=== PATIENT | female | born 1995 | race Caucasian/White ===

== ENCOUNTER 2016-08-25 16:21 | Inpatient (IN) | payer OTHER ==
[~2016-08-25] VITALS: Ht 157.5 cm; Wt 84.9 kg
[~2016-08-25 16:21] MED LIST: ACET325T33 PO; PREN1TAB49 PO
[2016-08-25 16:31] VITALS: Ht 157.5 cm; Wt 84.9 kg
[2016-08-25 16:33] VITALS: BP 123/64; PULSE 96; RESP 18
--- NOTE | 2016-08-25 16:55 | RADRPT ---
PROCEDURE: US biophysical profile. CLINICAL INDICATION: Decreased motion. TECHNIQUE: Multiple sonographic images of the uterus were obtained. The images were revi ewed on a PACS workstation. COMPARISON: No prior studies are available for comparison. FINDINGS: There is a single live intrauterine gestation. heart rate is 139 beats per minute. The position is cephalic. The placenta is posterior grade II with no abruption or previa. The JOHNY is 12.9 cm. (Normal = 5-20 cm.) Breathing Movement: 2 Gross Body Movement: 2 Tone: 2 Qualitative Amniotic Fluid Volume: 2 TOTAL: 8 IMPRESSION: 1. The biophysical score is 8/8. RPTAT: QQ .Gabo Nick MD, MD Date Time Electronically viewed and signed by .Gabo Nick MD, on 08/25/2016 16:54 .R/
--- NOTE | 2016-08-25 17:21 | RADRPT ---
PROCEDURE: Real Time Sonogram. August 25, 2016 04:46 p.m. CLINICAL INDICATION: 20-year-old female with uterine contractions. TECHNIQUE: This procedure was performed on a high-resolution ultrasound real time Unit using a end ovaginal probe. COMPARISON: None FINDINGS: Uterine measurements were not obtained. Presentation: Cephalic. Cervical Length: Not obtained.Placental Location: Posterior grade 2 placentaPlacental Previa: Inde terminate from this study. Body limb and cardiac motion: Yes.Heart rate: Cardiac activity was notated by the technologist. Fe romel heart rate is not recorded. Amniotic fluid volume:JOHNY is not recorded. Measured data: BPD:9.2 cm37 weeks 2 days plus or minus 3 weeks 1 day. HC:33.2 sh48-nhue 6 days plus or minus 2 weeks 5 days. AC:34.6 cm38 weeks 3 days plus or minus 3 weeks 0 days. FC:7.1 cm36 weeks 2 days plus or minus 3 weeks 0 days. AUA:37 weeks 3 days plus or minus 2 weeks 4 days. MENDEZ (AUA):September 12, 2016. Serial scan estimated menstrual age: Not calculated. weight: 3294 g plus or minus 494 g. Endovaginal imaging utilized: Yes. Additional findings: No. IMPRESSION: See above RPTAT:AAJJ Physician Elie Date Time Electronically viewed and signed by Physician Elie on 08/25/2016 17:21 DEDRICK/
[2016-08-25] MEDS ORDERED: CARBOPROST 250 MCG INJ IM PRN (18:00)
[2016-08-25] MEDS ORDERED: OXYTOCIN 30 UNITS/LR 500 ML IV PRN (18:00)
[2016-08-25] MEDS ORDERED: IBUPROFEN 600 MG TAB PO PRN (18:00)
[2016-08-25] MEDS ORDERED: METHYLERGONOVINE 0.2 MG INJ IM PRN (18:00)
[2016-08-25] MEDS ORDERED: OXYTOCIN 30 UNITS/LR 500 ML IV SCH ×2 (18:00)
[2016-08-25] MEDS ORDERED: LACTATED RINGER'S 1,000 ML IV PRN (18:00)
[2016-08-25] MEDS ORDERED: LIDOCAINE 1% (MPF) 30 ML INJ INJ PRN (18:00)
[2016-08-25] MEDS ORDERED: BUTORPHANOL 2 MG INJ IV PRN (18:00)
[2016-08-25] MEDS ORDERED: MISOPROSTOL 200 MCG TAB PR PRN (18:00)
--- NOTE | 2016-08-25 18:20 | TRIAGE ---
OB Triage Datetime Report Generated by CPN: 08/25/2016 18:19 Datetime: 08/25/2016 18:15 Labor Evaluation Frequency: 1-3 Monitor Mode: External Duration (sec)2399: 50-90 Quality: Moderate Pattern: Normal: <= 5 Contractions in 10 Minutes Resting Tone [place]: Relaxed Heart Rate FHR Baseline Rate: 130 Monitor Mode: External US FHR Baseline Changes: No Baseline Change Variability: Moderate 6-25 bpm Accelerations: 15X15 Decelerations: None Category: Category I Pain Assessment Pain Scale: 6 Pain Presence: Intermittent Pain Type: Contraction; Pressure Pain Location: Abdomen; Back Pain Goal: 2 Pain Relief Measures: Comfort Measures Datetime: 08/25/2016 17:56 Stage of : Labor Datetime: 08/25/2016 17:49 Vaginal Exam Dilatation (cms): 3.5 Effacement (%): 60 Station: -3 Exam By: Olga C. RN Datetime: 08/25/2016 17:30 Effacement (%): 70 Station: -3 Exam By: Ene RN Datetime: 08/25/2016 17:15 Labor Evaluation Frequency: 4-7 Monitor Mode: External Duration (sec)2399: 50-100 Quality: Mild Pattern: Normal: <= 5 Contractions in 10 Minutes Resting Tone [place]: Relaxed Heart Rate FHR Baseline Rate: 130 Monitor Mode: External US FHR Baseline Changes: No Baseline Change Variability: Moderate 6-25 bpm Accelerations: 15X15 Decelerations: None Category: Category I Pain Assessment Pain Scale: 6 Pain Presence: Intermittent Pain Type: Contraction; Pressure Pain Location: Abdomen; Back Pain Goal: 2 Pain Relief Measures: Comfort Measures Datetime: 08/25/2016 16:30 Assessment Type: Triage Maternal Assessment Level of Consciousness: Fully Conscious DTR's/Clonus: DTRs 2+; No Clonus Headache: Denies Blurred Vision: No Respiratory Effort: Unlabored; Regular Rhythm; Equal Expansion Breath Sounds, Left: Clear and Equal Breath Sounds, Right: Clear and Equal Nausea/Vomiting: Denies RUQ Epigastric Pain: Denies Lower Extremities Edema: Bilateral Lower Extremities Degree: 1+ Upper Extremities Edema: None Degree: None Facial Edema: None Fall Risk Assessment History of Falling: (0) No Secondary Diagnosis: (0) No Ambulatory Aid: (0) Bedrest/Nurse Assist IV Therapy: (0) No Gait: (0) Normal/Bedrest/Immobile Mental Status: (0) Oriented to Own Ability Fall Score: 0 Fall Risk Score Definition: No Risk: No action required Datetime: 08/25/2016 16:25 Time of Arrival: 08/25/2016 16:05 EGA: 39.0 Arrived By: Wheelchair Arrived From: Emergency Dept Chief Complaint: UC, vaginal bleeding, US for BPP/JOHNY, EFW, and placenta placement, VE. Movement: Present Contractions: Regular Rupture of Membranes: Unsure Vaginal Bleeding: Normal Show Vaginal Discharge: Present Recent Sexual Intercouse: Denies Abdominal Trauma: Not Applicable Patient Complaints: Contractions; Other Time Provider Notified: 08/25/2016 16:24 Provider Notified: Noman Initial Plan: OB US for placenta placement, EFW, BPP/JOHNY Datetime: 08/25/2016 16:15 Stage of : OB Triage
[2016-08-25] MEDS: LACTATED RINGER'S 1,000 ML IV SCH ×2 (19:47→21:19)
[2016-08-25 20:05] LABS: ADD SCAN DIFF NO
[2016-08-25 20:19] LABS: BASOPHILS % 0.2 % (0.0-2.0); EOSINOPHILS # 0.1 10^3/ul (0.0-0.5); EOSINOPHILS % 0.6 % (0.0-7.0); HEMATOCRIT 33.2 % (37.0-47.0); HEMOGLOBIN 10.5 g/dl (12.0-16.0); INR 0.88; LYMPHOCYTES # 2.7 10^3/ul (0.8-2.9); LYMPHOCYTES % 20.8 % (15.0-51.0); MEAN CORPUSCULAR HEMOGLOBIN 23.9 pg (29.0-33.0); MEAN CORPUSCULAR HGB CONC 31.6 g/dl (32.0-37.0); MEAN CORPUSCULAR VOLUME 75.5 fl (82.0-101.0); MEAN PLATELET VOLUME 13.1 fl (7.4-10.4); MONOCYTE # 0.8 10^3/ul (0.3-0.9); MONOCYTES % 6.3 % (0.0-11.0); NEUTROPHIL # 9.1 10^3/ul (1.6-7.5); NEUTROPHILS % 71.5 % (39.0-77.0); PLATELET COUNT 209 10^3/UL (140-415); PROTIME 11.9 Sec (12.2-14.2); PT RATIO 0.9; RED CELL DISTRIBUTION WIDTH 15.7 % (11.5-14.5); WHITE BLOOD COUNT 12.7 10^3/ul (4.8-10.8)
[2016-08-25 20:20] LABS: PARTIAL THROMBOPLASTIN TIME 26.1 Sec (25.0-35.0)
[2016-08-25] MEDS ORDERED: FENTAnyl 2MCG/ML-ROPIV 0.2% 100 ML ONE (21:13)
[2016-08-25] MEDS ORDERED: NALOXONE (0.4 MG/ML) INJ IV PRN (21:30)
[2016-08-25] MEDS ORDERED: FENTAnyl 2MCG/ML-ROPIV 0.2% 100 ML BAG EPI SCH (21:30)
[2016-08-25] MEDS ORDERED: ONDANSETRON 4 MG INJ IV PRN (21:30)
[2016-08-25] MEDS ORDERED: DIPHENHYDRAMINE 50 MG INJ IV PRN (21:30)
--- NOTE | 2016-08-26 00:23 | HP ---
Date/Time of Note Date/Time of Note DATE: 08/26/16 TIME: 00:19 OB - History Hx of Present Chief Complaint: contractions Estimated Due Date: Sep 01, 2016 : 4 Para: 2 Spontaneous : 1 Therapeutic : 0 Care: Good Care Obstetrical Complications: None Medical Complications: None Past Family/Social History * Past Medical, Surgical, Family and Obstetric Histories reviewed from chart. GBS Status: Negative OB Admission Exam Vital Signs Vital Signs Vital Signs Date Time Temp Pulse Resp B/P Pulse Ox O2 Delivery O2 Flow Rate FiO2 08/25/16 16:33 98.2 96 18 123/64 Room Air Physical Exam HEENT: WNL Heart: Rhythm Normal Lungs: Clear Abdomen: WNL Extremities: Normal Cervical Dilatation: 4cm Effacement: 50% Station: -1 Membranes: Intact Heart Rate: 140's Accelerations: Accelerations Present Decelerations: No Decelerations Varibility: Moderate Last 72 hours Lab Results CBC & BMP 08/25/16 19:40 OB Assessment/Plan Reason for admission: active labor Plan: Expectant Management МАРИЯ FERNANDES MD Aug 26, 2016 00:23
[2016-08-26 02:00] VITALS: BP 115/63; PULSE 81; RESP 17
[2016-08-26] MEDS: LACTATED RINGER'S 1,000 ML IV* SCH ×2 (02:32→05:49)
[2016-08-26] MEDS ORDERED: OXYTOCIN 30 UNITS/LR 500 ML IV PRN (03:00)
[2016-08-26] MEDS ORDERED: METHYLERGONOVINE 0.2 MG INJ IM PRN (03:00)
[2016-08-26] MEDS ORDERED: ACETAMINOPHEN 325 MG TAB PO PRN (03:00)
[2016-08-26] MEDS ORDERED: ACETAMINOPHEN/CODEINE #3 TAB PO PRN (03:00)
[2016-08-26] MEDS ORDERED: WITCH HAZEL/GLYCERIN PAD PR PRN (03:00)
[2016-08-26] MEDS ORDERED: DIBUCAINE 1% 30 GM OINT PR PRN (03:00)
[2016-08-26] MEDS ORDERED: MISOPROSTOL 200 MCG TAB PR PRN (03:00)
[2016-08-26] MEDS ORDERED: CARBOPROST 250 MCG INJ IM PRN (03:00)
[2016-08-26 04:00] VITALS: BP 121/55; PULSE 91; RESP 18
[2016-08-26] MEDS: IBUPROFEN 600 MG TAB PO SCH ×3 (05:43→17:39)
[2016-08-26] MEDS: BENZOCAINE 20% 56 ML SPRAY TOP PRN ×2 (05:44→05:45)
[2016-08-26 08:00] VITALS: BP 103/61; PULSE 71; RESP 18
[2016-08-26] MEDS: SENNA/DOCUSATE NA (8.6MG/50MG) TAB PO SCH ×2 (09:36→21:00)
[2016-08-26 11:50] VITALS: BP 110/58; PULSE 78; RESP 18
[2016-08-26 16:15] VITALS: BP 109/73; PULSE 74; RESP 18
[2016-08-26 19:45] VITALS: BP 117/59; PULSE 97; RESP 18
[2016-08-27] MEDS: IBUPROFEN 600 MG TAB PO SCH ×4 (00:04→17:48)
[2016-08-27 03:49] VITALS: BP 111/70; PULSE 79; RESP 18
[2016-08-27 06:44] LABS: ADD SCAN DIFF NO
[2016-08-27 06:53] LABS: BASOPHILS % 0.4 % (0.0-2.0); EOSINOPHILS # 0.2 10^3/ul (0.0-0.5); EOSINOPHILS % 1.6 % (0.0-7.0); HEMATOCRIT 31.5 % (37.0-47.0); HEMOGLOBIN 9.6 g/dl (12.0-16.0); LYMPHOCYTES # 3.8 10^3/ul (0.8-2.9); LYMPHOCYTES % 34.2 % (15.0-51.0); MEAN CORPUSCULAR HEMOGLOBIN 23.5 pg (29.0-33.0); MEAN CORPUSCULAR HGB CONC 30.5 g/dl (32.0-37.0); MEAN PLATELET VOLUME 12.7 fl (7.4-10.4); MONOCYTE # 0.8 10^3/ul (0.3-0.9); MONOCYTES % 6.8 % (0.0-11.0); NEUTROPHIL # 6.2 10^3/ul (1.6-7.5); NEUTROPHILS % 56.2 % (39.0-77.0); PLATELET COUNT 186 10^3/UL (140-415); RED BLOOD COUNT 4.09 10^6/ul (4.20-5.40); RED CELL DISTRIBUTION WIDTH 15.9 % (11.5-14.5); WHITE BLOOD COUNT 11.1 10^3/ul (4.8-10.8)
[2016-08-27 08:00] VITALS: BP 119/73; PULSE 68; RESP 18
[2016-08-27] MEDS ORDERED: INFLUENZA VIRUS VACCINE 0.5 ML (DISPENSING) IM* ONE (09:00)
[2016-08-27] MEDS: SENNA/DOCUSATE NA (8.6MG/50MG) TAB PO SCH ×2 (09:32→20:55)
[2016-08-27 16:24] VITALS: BP 117/62; PULSE 75; RESP 16
--- NOTE | 2016-08-27 20:01 | DS ---
Date/Time of Note Date/Time of Note DATE: 08/27/16 TIME: 20:00 Obstetrical Discharge Record Final Diagnosis Final Diagnosis: Term delivered Vaginal Delivery Obstetrical Delivery: Spontaneous Condition on Discharge Physical Assessment Voiding: Yes Bowel Movement: Yes Breast: Soft, non-tender Fundus: Firm Calf Tenderness: Yes Patient Condition: Stable МАРИЯ FERNANDES MD Aug 27, 2016 20:01
[2016-08-27 20:30] VITALS: BP 117/58; PULSE 82; RESP 18
[2016-08-28 04:00] VITALS: BP 111/67; PULSE 77; RESP 18
[2016-08-28] MEDS: IBUPROFEN 600 MG TAB PO SCH ×3 (06:00→11:48)
[2016-08-28 08:10] VITALS: BP 115/67; PULSE 75; RESP 16
[2016-08-28] MEDS: SENNA/DOCUSATE NA (8.6MG/50MG) TAB PO SCH (09:00)
[2016-08-28] MEDS ORDERED: DIPHTH/TET/ACEL PERTUSS (ADULT) 0.5 ML VIAL IM* ONE (09:00)
--- NOTE | 2016-09-06 21:27 | LDN ---
Date/Time of Note Date/Time of Note DATE: 08/26/16 TIME: 00:24 Delivery Summary Placenta Delivered: Spontaneously Meconium: none Perineum intact?: Yes Anesthesia type: Epidural Sponge & Needle done & correct: Yes All needle counts correct: Yes Any foreign bodies felt in the: No Problems: Infant Delivery Information Sex Infant Sex: female Apgars 1 Minute: 9 5 Minute: 9 Suctioning Nose & mouth suctioned at jacobo: Yes Delee suction performed: No Umbilical Cord Umbilical cord with: 3 Vessels Cord presentations: no nuchal cord Cord Blood was obtained: Yes Mother & Baby Disposition Disposition Mom & Baby to Maternity; Good: Yes МАРИЯ FERNANDES MD Aug 26, 2016 00:36
== END 2016-08-28 12:40 | disposition home or self-care (01) | DRG 775 ==
LOC: OBT 16:21 → L-D 16:21 → OBT 18:00 → L-D 19:18 → PP1 08-26 02:15
PROVIDERS: ADMIT Obstetrics & Gynecology; ATTEND Obstetrics & Gynecology
PROC: 10E0XZZ Delivery of Products of Conception, External Approach (ICD-10-PCS; principal; 2016-08-25)
PROC: 3E0234Z Introduction of Serum, Toxoid and Vaccine into Muscle, Percutaneous Approach (ICD-10-PCS; 2016-08-25)
DX: O80 Encounter for full-term uncomplicated delivery (principal); Z23 Encounter for immunization; Z3A.39 39 weeks gestation of pregnancy; Z37.0 Single live birth
CPT/HCPCS: 62319; 76815; 76818; 85025; 85610; 85730; 86592; 86900; 86901; 87340; 90686; 90715; G0463; J2590; J3010; J7120

== ENCOUNTER 2017-04-18 09:21 | Emergency (ER) | payer OTHER ==
[~2017-04-18] VITALS: Wt 83.4 kg
--- NOTE | 2017-04-18 12:50 | RADRPT ---
PROCEDURE: US Abdomen (right upper quadrant). CLINICAL INDICATION: Right upper quadrant abdomen pain. TECHNIQUE: Multiple real-time longitudinal and transverse images of the right upper quadrant of th e abdomen were acquired utilizing a curved array transducer. Images were reviewed on a high-resoluti on PACS workstation. COMPARISON: None FINDINGS: The liver is normal in size and diffusely increased in echogenicity. There is no focal hepatic lesion. Color Doppler and pulsed Doppler sonography demonstrate normal a ntegrade flow in the portal vein. There is sludge within the gallbladder. The gallbladder is otherwise normal with no stones or wall t hickening. There is no pericholecystic fluid collection. The bile ducts are normal with the common bile duct measuring 2.6 mm in diameter. The pancreas is not visualized due to overlying bowel gas. No free fluid is present. The right kidney measures 11.4 x 6.2 x 5.0 cm. There is normal echogenicity of the right kidney. There is no perinephric fluid collection. No hydronephrosis, mass, or calculus is seen. IMPRESSION: 1. Fatty metamorphosis of the liver. 2. Sludge in the gallbladder. The III no gallstones or evidence of cholecystitis. 4. Pancreas not visualized. 5. Otherwise normal right upper quadrant abdomen ultrasound. RPTAT: QQ .Gabo Nick MD, Date Time Electronically viewed and signed by .Gabo Nick MD, on 04/18/2017 12:50 .R/
--- NOTE | 2017-04-18 12:59 | RADRPT ---
PROCEDURE: Obstetrical ultrasound CLINICAL INDICATION: Vaginal bleeding, , abdominal pain TECHNIQUE: Multiple sonographic images of the pelvis were obtained. The images were reviewed on a PACS workstation. COMPARISON: None FINDINGS: The cervix is not well visualized. There is a single viable intrauterine gestation. Cardiac activity is present with 135 beats per minute. There is a breech presentation. The placenta is anterior. There is no evidence for an abruption or placenta previa. There is a subjectively normal amount of amniotic fluid. Measurements were made in order to determine age. The results are as follows (cm): BPD =6.63 HC =24.88 AC =22.43 FL =4.53 Estimated gestational age by ultrasound of approximately 26 weeks, 3 days. The estimated date of delivery by ultrasound is 07/22/2017. EFW = 905 grams IMPRESSION: Single viable intrauterine gestation of approximately 26 weeks, 3 days . The estimated date of delivery is 07/22/2017 . Breech presentation. Anterior placenta without evidence of an abruption or placenta previa. RPTAT: EE Physician Tiana Date Time Electronically viewed and signed by Physician Tiana on 04/18/2017 12:59 /
--- NOTE | 2017-04-18 13:02 | ERD ---
ER Documentation Chief Complaint Chief Complaint ruq pain rad into back, dizziness HPI Otherwise healthy 22-year-old female presented with a chief complaint of right upper quadrant abdominal pain 1 week. Gave 6 months ago. Denies any vaginal discharge or bleeding. Denies dysuria, hematuria. No nausea, vomiting , diarrhea, constipation. No fever, chills. No aggravating or alleviating factors. Patient has no other complaints and describes no other associated manifestations. Nursing notes have been reviewed and are consistent with history given. ROS All systems reviewed and are negative except as per history of present illness. Medications Home Meds Discontinued Reported Medications Vits W-Ca,Fe,Fa(<1MG) () 1 Tab Tablet, 1 TAB PO 12/07/11 Discontinued Scripts Acetaminophen* (Tylenol*) 325 Mg Tablet, 1 TAB PO Q6 Y for PAIN AND OR ELEVATED TEMP, #20 TAB Prov:DOUGLAS CHAPPELL PA-C 11/02/15 Allergies Allergies: Coded Allergies: No Known Allergy (Unverified , 04/18/17) PMhx/Soc Medical and Surgical Hx: pt denies Medical Hx, pt denies Surgical Hx History of Surgery: No Anesthesia Reaction: No Hx Neurological Disorder: No Hx Respiratory Disorders: No Hx Cardiac Disorders: No Hx Psychiatric Problems: No Hx Miscellaneous Medical Probl: No Hx Alcohol Use: No Hx Substance Use: No Hx Tobacco Use: No Smoking Status: Never smoker Physical Exam Vitals Vital Signs Date Time Temp Pulse Resp B/P Pulse Ox O2 Delivery O2 Flow Rate FiO2 04/18/17 09:24 98.6 85 20 112/58 97 Physical Exam Const: Overweight 21-year-old female no acute distress Head: Atraumatic Eyes: Normal Conjunctiva ENT: Normal External Ears, Nose and Mouth. Neck: Full range of motion..~ No meningismus. Resp: Clear to auscultation bilaterally Cardio: Regular rate and rhythm, no murmurs Abd: Mild right upper quadrant tenderness. Gallbladder tender to palpation. Negative Kenney sign. Liver edge not palpable. Soft, non distended. Normal bowel sounds Skin: No petechiae or rashes Back: No midline or flank tenderness Ext: No cyanosis, or edema Neur: Awake and alert Psych: Normal Mood and Affect Result Diagram: 04/18/17 1145 04/18/17 1145 Results 24 hrs Laboratory Tests Test 04/18/17 11:45 White Blood Count 10.110^3/ul Red Blood Count 4.2010^6/ul Hemoglobin 10.7g/dl Hematocrit 33.9% Mean Corpuscular Volume 80.7fl Mean Corpuscular Hemoglobin 25.5pg Mean Corpuscular Hemoglobin Concent 31.6g/dl Red Cell Distribution Width 14.3% Platelet Count 99508^3/UL Mean Platelet Volume 11.7fl Neutrophils % 70.4% Lymphocytes % 22.9% Monocytes % 4.9% Eosinophils % 0.4% Basophils % 0.3% Nucleated Red Blood Cells % 0.0/100WBC Neutrophils # 7.110^3/ul Lymphocytes # 2.310^3/ul Monocytes # 0.510^3/ul Eosinophils # 0.010^3/ul Basophils # 0.010^3/ul Nucleated Red Blood Cells # 0.010^3/ul Urine Color YELLOW Urine Clarity CLEAR Urine pH 7.0 Urine Specific [place] 1.013 Urine Ketones NEGATIVEmg/dL Urine Nitrite NEGATIVEmg/dL Urine Bilirubin NEGATIVEmg/dL Urine Urobilinogen NEGATIVEmg/dL Urine Leukocyte Esterase NEGATIVELeu/ul Urine Hemoglobin NEGATIVEmg/dL Urine Glucose NEGATIVEmg/dL Urine Total Protein NEGATIVEmg/dl Sodium Level 139mmol/L Potassium Level 3.4mmol/L Chloride Level 104mmol/L Carbon Dioxide Level 25mmol/L Anion Gap 13 Blood Urea Nitrogen 6mg/dl Creatinine 0.59mg/dl Glucose Level 103mg/dl Calcium Level 10.1mg/dl Total Bilirubin 0.5mg/dl Direct Bilirubin 0.00mg/dl Indirect Bilirubin 0.5mg/dl Aspartate Amino Transf (AST/SGOT) 19IU/L Alanine Aminotransferase (ALT/SGPT) 27IU/L Alkaline Phosphatase 108IU/L Total Protein 7.1g/dl Albumin 3.8g/dl Globulin 3.30g/dl Albumin/Globulin Ratio 1.15 Lipase 196U/L Beta HCG, Quantitative 7144.9mIU/ml Procedures/MDM Otherwise healthy 21-year-old female presenting with a chief complaint of pelvic pain. Urine test was positive. Ultrasound showed 26 weeks . Patient was then transferred up to [facility]AGE [facility] for clearance. Departure Additional Instructions: This case was handed to [facility] due to date of fetus. JA HILTON PA-C Apr 18, 2017 13:02
--- NOTE | 2017-04-18 13:02 | ERD ---
ER Documentation Chief Complaint Chief Complaint ruq pain rad into back, dizziness HPI Otherwise healthy 22-year-old female presented with a chief complaint of right upper quadrant abdominal pain 1 week. Gave 6 months ago. Denies any vaginal discharge or bleeding. Denies dysuria, hematuria. No nausea, vomiting , diarrhea, constipation. No fever, chills. No aggravating or alleviating factors. Patient has no other complaints and describes no other associated manifestations. Nursing notes have been reviewed and are consistent with history given. ROS All systems reviewed and are negative except as per history of present illness. Medications Home Meds Discontinued Reported Medications Vits W-Ca,Fe,Fa(<1MG) () 1 Tab Tablet, 1 TAB PO 12/07/11 Discontinued Scripts Acetaminophen* (Tylenol*) 325 Mg Tablet, 1 TAB PO Q6 Y for PAIN AND OR ELEVATED TEMP, #20 TAB Prov:DOUGLAS CHAPPELL PA-C 11/02/15 Allergies Allergies: Coded Allergies: No Known Allergy (Unverified , 04/18/17) PMhx/Soc Medical and Surgical Hx: pt denies Medical Hx, pt denies Surgical Hx History of Surgery: No Anesthesia Reaction: No Hx Neurological Disorder: No Hx Respiratory Disorders: No Hx Cardiac Disorders: No Hx Psychiatric Problems: No Hx Miscellaneous Medical Probl: No Hx Alcohol Use: No Hx Substance Use: No Hx Tobacco Use: No Smoking Status: Never smoker Physical Exam Vitals Vital Signs Date Time Temp Pulse Resp B/P Pulse Ox O2 Delivery O2 Flow Rate FiO2 04/18/17 09:24 98.6 85 20 112/58 97 Physical Exam Const: Overweight 21-year-old female no acute distress Head: Atraumatic Eyes: Normal Conjunctiva ENT: Normal External Ears, Nose and Mouth. Neck: Full range of motion..~ No meningismus. Resp: Clear to auscultation bilaterally Cardio: Regular rate and rhythm, no murmurs Abd: Mild right upper quadrant tenderness. Gallbladder tender to palpation. Negative Kenney sign. Liver edge not palpable. Soft, non distended. Normal bowel sounds Skin: No petechiae or rashes Back: No midline or flank tenderness Ext: No cyanosis, or edema Neur: Awake and alert Psych: Normal Mood and Affect Result Diagram: 04/18/17 1145 04/18/17 1145 Results 24 hrs Laboratory Tests Test 04/18/17 11:45 White Blood Count 10.110^3/ul Red Blood Count 4.2010^6/ul Hemoglobin 10.7g/dl Hematocrit 33.9% Mean Corpuscular Volume 80.7fl Mean Corpuscular Hemoglobin 25.5pg Mean Corpuscular Hemoglobin Concent 31.6g/dl Red Cell Distribution Width 14.3% Platelet Count 32610^3/UL Mean Platelet Volume 11.7fl Neutrophils % 70.4% Lymphocytes % 22.9% Monocytes % 4.9% Eosinophils % 0.4% Basophils % 0.3% Nucleated Red Blood Cells % 0.0/100WBC Neutrophils # 7.110^3/ul Lymphocytes # 2.310^3/ul Monocytes # 0.510^3/ul Eosinophils # 0.010^3/ul Basophils # 0.010^3/ul Nucleated Red Blood Cells # 0.010^3/ul Urine Color YELLOW Urine Clarity CLEAR Urine pH 7.0 Urine Specific [place] 1.013 Urine Ketones NEGATIVEmg/dL Urine Nitrite NEGATIVEmg/dL Urine Bilirubin NEGATIVEmg/dL Urine Urobilinogen NEGATIVEmg/dL Urine Leukocyte Esterase NEGATIVELeu/ul Urine Hemoglobin NEGATIVEmg/dL Urine Glucose NEGATIVEmg/dL Urine Total Protein NEGATIVEmg/dl Sodium Level 139mmol/L Potassium Level 3.4mmol/L Chloride Level 104mmol/L Carbon Dioxide Level 25mmol/L Anion Gap 13 Blood Urea Nitrogen 6mg/dl Creatinine 0.59mg/dl Glucose Level 103mg/dl Calcium Level 10.1mg/dl Total Bilirubin 0.5mg/dl Direct Bilirubin 0.00mg/dl Indirect Bilirubin 0.5mg/dl Aspartate Amino Transf (AST/SGOT) 19IU/L Alanine Aminotransferase (ALT/SGPT) 27IU/L Alkaline Phosphatase 108IU/L Total Protein 7.1g/dl Albumin 3.8g/dl Globulin 3.30g/dl Albumin/Globulin Ratio 1.15 Lipase 196U/L Beta HCG, Quantitative 7144.9mIU/ml Procedures/MDM Otherwise healthy 21-year-old female presenting with a chief complaint of pelvic pain. Urine test was positive. Ultrasound showed 26 weeks . Patient was then transferred up to [facility] for clearance. Departure Additional Instructions: This case was handed to [facility] due to date of fetus. JA HILTON PA-C Apr 18, 2017 13:02
--- NOTE | 2017-04-18 13:02 | ERD ---
ER Documentation Chief Complaint Chief Complaint ruq pain rad into back, dizziness HPI Otherwise healthy 22-year-old female presented with a chief complaint of right upper quadrant abdominal pain 1 week. Gave 6 months ago. Denies any vaginal discharge or bleeding. Denies dysuria, hematuria. No nausea, vomiting , diarrhea, constipation. No fever, chills. No aggravating or alleviating factors. Patient has no other complaints and describes no other associated manifestations. Nursing notes have been reviewed and are consistent with history given. ROS All systems reviewed and are negative except as per history of present illness. Medications Home Meds Discontinued Reported Medications Vits W-Ca,Fe,Fa(<1MG) () 1 Tab Tablet, 1 TAB PO 12/07/11 Discontinued Scripts Acetaminophen* (Tylenol*) 325 Mg Tablet, 1 TAB PO Q6 Y for PAIN AND OR ELEVATED TEMP, #20 TAB Prov:DOUGLAS CHAPPELL PA-C 11/02/15 Allergies Allergies: Coded Allergies: No Known Allergy (Unverified , 04/18/17) PMhx/Soc Medical and Surgical Hx: pt denies Medical Hx, pt denies Surgical Hx History of Surgery: No Anesthesia Reaction: No Hx Neurological Disorder: No Hx Respiratory Disorders: No Hx Cardiac Disorders: No Hx Psychiatric Problems: No Hx Miscellaneous Medical Probl: No Hx Alcohol Use: No Hx Substance Use: No Hx Tobacco Use: No Smoking Status: Never smoker Physical Exam Vitals Vital Signs Date Time Temp Pulse Resp B/P Pulse Ox O2 Delivery O2 Flow Rate FiO2 04/18/17 09:24 98.6 85 20 112/58 97 Physical Exam Const: Overweight 21-year-old female no acute distress Head: Atraumatic Eyes: Normal Conjunctiva ENT: Normal External Ears, Nose and Mouth. Neck: Full range of motion..~ No meningismus. Resp: Clear to auscultation bilaterally Cardio: Regular rate and rhythm, no murmurs Abd: Mild right upper quadrant tenderness. Gallbladder tender to palpation. Negative Kenney sign. Liver edge not palpable. Soft, non distended. Normal bowel sounds Skin: No petechiae or rashes Back: No midline or flank tenderness Ext: No cyanosis, or edema Neur: Awake and alert Psych: Normal Mood and Affect Result Diagram: 04/18/17 1145 04/18/17 1145 Results 24 hrs Laboratory Tests Test 04/18/17 11:45 White Blood Count 10.110^3/ul Red Blood Count 4.2010^6/ul Hemoglobin 10.7g/dl Hematocrit 33.9% Mean Corpuscular Volume 80.7fl Mean Corpuscular Hemoglobin 25.5pg Mean Corpuscular Hemoglobin Concent 31.6g/dl Red Cell Distribution Width 14.3% Platelet Count 16341^3/UL Mean Platelet Volume 11.7fl Neutrophils % 70.4% Lymphocytes % 22.9% Monocytes % 4.9% Eosinophils % 0.4% Basophils % 0.3% Nucleated Red Blood Cells % 0.0/100WBC Neutrophils # 7.110^3/ul Lymphocytes # 2.310^3/ul Monocytes # 0.510^3/ul Eosinophils # 0.010^3/ul Basophils # 0.010^3/ul Nucleated Red Blood Cells # 0.010^3/ul Urine Color YELLOW Urine Clarity CLEAR Urine pH 7.0 Urine Specific [place] 1.013 Urine Ketones NEGATIVEmg/dL Urine Nitrite NEGATIVEmg/dL Urine Bilirubin NEGATIVEmg/dL Urine Urobilinogen NEGATIVEmg/dL Urine Leukocyte Esterase NEGATIVELeu/ul Urine Hemoglobin NEGATIVEmg/dL Urine Glucose NEGATIVEmg/dL Urine Total Protein NEGATIVEmg/dl Sodium Level 139mmol/L Potassium Level 3.4mmol/L Chloride Level 104mmol/L Carbon Dioxide Level 25mmol/L Anion Gap 13 Blood Urea Nitrogen 6mg/dl Creatinine 0.59mg/dl Glucose Level 103mg/dl Calcium Level 10.1mg/dl Total Bilirubin 0.5mg/dl Direct Bilirubin 0.00mg/dl Indirect Bilirubin 0.5mg/dl Aspartate Amino Transf (AST/SGOT) 19IU/L Alanine Aminotransferase (ALT/SGPT) 27IU/L Alkaline Phosphatase 108IU/L Total Protein 7.1g/dl Albumin 3.8g/dl Globulin 3.30g/dl Albumin/Globulin Ratio 1.15 Lipase 196U/L Beta HCG, Quantitative 7144.9mIU/ml Procedures/MDM Otherwise healthy 21-year-old female presenting with a chief complaint of pelvic pain. Urine test was positive. Ultrasound showed 26 weeks . Patient was then transferred up to [facility] for clearance. Departure Additional Instructions: This case was handed to [facility] AL[employer]MENT TECHNICIAN due to date of fetus. JA HILTON PA-C Apr 18, 2017 13:02
== END 2017-04-18 19:30 | disposition left against medical advice (07) ==
LOC: FTE 09:21
DX: O26.892 Other specified pregnancy related conditions, second trimester (principal); R10.11 Right upper quadrant pain; R10.2 Pelvic and perineal pain; Z3A.26 26 weeks gestation of pregnancy
CPT/HCPCS: 36415; 76705; 76801; 80053; 81003; 83690; 84702; 85025; 86900; 86901; Z7502

== ENCOUNTER 2017-04-18 13:32 | Outpatient (CLI) | payer OTHER ==
[~2017-04-18] VITALS: Ht 157.5 cm; Wt 83.9 kg
[2017-04-18 13:50] VITALS: BP 112/62; PULSE 84; RESP 18; Ht 157.5 cm; Wt 83.9 kg
--- NOTE | 2017-04-18 14:53 | RADRPT ---
PROCEDURE: Limited obstetric ultrasound CLINICAL INDICATION: Pain TECHNIQUE: Multiple transverse and longitudinal grayscale images of the pelvis were obtained ribeiro sabdominally and transvaginally.. COMPARISON: same day FINDINGS: The cervix is closed with a length of 4.9 cm. There is a single viable intrauterine gestation. Cardiac activity is present with 134 beats per min [place]. There is a breech presentation. The placenta is anterior. There is no evidence for an abruption or placenta previa. RPTAT: AA IMPRESSION: Cervix length measures 4.9 cm. .Cristian Neville MD, Date Time Electronically viewed and signed by .Cristian Neville MD, on 04/18/2017 14:53 .S/
--- NOTE | 2017-04-18 14:53 | RADRPT ---
PROCEDURE: Limited obstetric ultrasound CLINICAL INDICATION: Pain TECHNIQUE: Multiple transverse and longitudinal grayscale images of the pelvis were obtained ribeiro sabdominally and transvaginally.. COMPARISON: same day FINDINGS: The cervix is closed with a length of 4.9 cm. There is a single viable intrauterine gestation. Cardiac activity is present with 134 beats per min [place]. There is a breech presentation. The placenta is anterior. There is no evidence for an abruption or placenta previa. RPTAT: AA IMPRESSION: Cervix length measures 4.9 cm. .Cristian Neville MD, Date Time Electronically viewed and signed by .Cristian Neville MD, on 04/18/2017 14:53 .S/
--- NOTE | 2017-04-18 14:53 | RADRPT ---
PROCEDURE: Limited obstetric ultrasound CLINICAL INDICATION: Pain TECHNIQUE: Multiple transverse and longitudinal grayscale images of the pelvis were obtained ribeiro sabdominally and transvaginally.. COMPARISON: same day FINDINGS: The cervix is closed with a length of 4.9 cm. There is a single viable intrauterine gestation. Cardiac activity is present with 134 beats per min rampart. There is a breech presentation. The placenta is anterior. There is no evidence for an abruption or placenta previa. RPTAT: AA IMPRESSION: Cervix length measures 4.9 cm. .Cristian Neville MD, Date Time Electronically viewed and signed by .Cristian Neville MD, on 04/18/2017 14:53 .S/
[2017-04-18] MEDS ORDERED: ACETAMINOPHEN 325 MG TAB PO ONE (16:30)
--- NOTE | 2017-04-18 17:02 | TRIAGE ---
OB Triage Datetime Report Generated by CPN: 04/18/2017 17:01 Datetime: 04/18/2017 16:44 Stage of : OB Triage Maternal Assessment Level of Consciousness: Fully Conscious Labor Evaluation Frequency: NONE Monitor Mode: External Resting Tone [place]: Relaxed Heart Rate FHR Baseline Rate: 135 Monitor Mode: External US Variability: Moderate 6-25 bpm Accelerations: 15X15 Decelerations: None Pain Assessment Pain Scale: 0 Pain Goal: 3 Vaginal Exam Membrane Status: Intact Vaginal Bleeding: None Datetime: 04/18/2017 16:00 Stage of : OB Triage Maternal Assessment Level of Consciousness: Fully Conscious Labor Evaluation Frequency: NONE Monitor Mode: External Resting Tone [place]: Relaxed Heart Rate FHR Baseline Rate: 135 Monitor Mode: External US Variability: Moderate 6-25 bpm Accelerations: 15X15 Decelerations: None Pain Assessment Pain Scale: 0 Pain Goal: 3 Vaginal Exam Membrane Status: Intact Vaginal Bleeding: None Datetime: 04/18/2017 15:00 Stage of : OB Triage Maternal Assessment Level of Consciousness: Fully Conscious Labor Evaluation Frequency: NONE Monitor Mode: External Resting Tone [place]: Relaxed Heart Rate FHR Baseline Rate: 135 Monitor Mode: External US Variability: Moderate 6-25 bpm Accelerations: 15X15 Decelerations: None Pain Assessment Pain Scale: 0 Pain Goal: 3 Vaginal Exam Membrane Status: Intact Vaginal Bleeding: None Datetime: 04/18/2017 13:47 Assessment Type: Triage Maternal Assessment Level of Consciousness: Fully Conscious DTR's/Clonus: DTRs 2+; No Clonus Headache: Denies Blurred Vision: No Respiratory Effort: Unlabored; Regular Rhythm; Equal Expansion Breath Sounds, Left: Clear and Equal Breath Sounds, Right: Clear and Equal Nausea/Vomiting: Denies RUQ Epigastric Pain: Denies Lower Extremities Edema: None Degree: None Upper Extremities Edema: None Degree: None Facial Edema: None Fall Risk Assessment History of Falling: (0) No Secondary Diagnosis: (0) No Ambulatory Aid: (0) Bedrest/Nurse Assist IV Therapy: (0) No Gait: (0) Normal/Bedrest/Immobile Mental Status: (0) Oriented to Own Ability Fall Score: 0 Fall Risk Score Definition: No Risk: No action required Datetime: 04/18/2017 13:45 Time of Arrival: 04/18/2017 13:15 EGA: 26.3 Arrived By: Ambulatory Arrived From: Home Chief Complaint: PT HERE FROM ED, DIDNT KNOW SHE WAS . Movement: Absent Contractions: Denies/Absent Rupture of Membranes: Denies Vaginal Bleeding: None Vaginal Discharge: Denies Recent Sexual Intercouse: Denies Abdominal Trauma: Not Applicable Patient Complaints: None Time Provider Notified: 04/18/2017 13:55 Provider Notified: GWEN Initial Plan: EFM/CVL/ TYLENOL PO Datetime: 04/18/2017 13:44 Monitor Mode: External Monitor Mode: External US
--- NOTE | 2017-04-18 17:11 | PN ---
Triage Information Date/Time 04/18/2017 Reason for visit: Weeks of Gestation 26 weeks and 3 days /Para Diabetes: none Hypertention: none Additional information 21 years old with IUP at 26 weeks and 3 days with complaint of epigastric pain since 3 years ago, on and off, now persistent for the past 15 days presented with complaint of upper abdominal pain and epigastric area with radiation to the right upper quadrant and toward the back. She denies any nausea, vomiting, lower abdominal pain, urinary symptoms, leaking of fluid, vaginal bleeding or decreased movement. Recent emergency room and had workup for abdominal pain including pelvic and right upper quadrant ultrasound that showed sludge in the gallbladder with no evidence of stone. She was then subsequently to labor and delivery for obstetric evaluation. Patient does not have any obstetrical complaints. Objective Vital Signs Date Time Temp Pulse Resp B/P Pulse Ox O2 Delivery O2 Flow Rate FiO2 04/18/17 13:50 99.0 84 18 112/62 100 Room Air Heart Rate: 130's Contractions: None Exam General appearance: Alert and oriented 4. Patient appears to be in mild to moderate distress. Abdomen: Soft, gravid, fundal height consistent with gestational age. No rebound tenderness, no guarding, no rigidity, no evidence of acute abdomen No fundal tenderness, fundal height consistent with gestational age NST: Appropriate for gestational age No suprapubic tenderness, no CVA tenderness negative Kenney sign, Remedies: No calf tenderness, no click no edema Results/Medications Imaging Results ROCEDURE: Limited obstetric ultrasound CLINICAL INDICATION: Pain TECHNIQUE: Multiple transverse and longitudinal grayscale images of the pelvis were obtained transabdominally and transvaginally.. COMPARISON: same day FINDINGS: The cervix is closed with a length of 4.9 cm. There is a single viable intrauterine gestation. Cardiac activity is present with 134 beats per minute. There is a breech presentation. The placenta is anterior. There is no evidence for an abruption or placenta previa. RPTAT: AA IMPRESSION: Cervix length measures 4.9 cm. PROCEDURE: US Abdomen (right upper quadrant). CLINICAL INDICATION: Right upper quadrant abdomen pain. TECHNIQUE: Multiple real-time longitudinal and transverse images of the right upper quadrant of the abdomen were acquired utilizing a curved array transducer. Images were reviewed on a high-resolution PACS workstation. COMPARISON: None FINDINGS: The liver is normal in size and diffusely increased in echogenicity. There is no focal hepatic lesion. Color Doppler and pulsed Doppler sonography demonstrate normal antegrade flow in the portal vein. There is sludge within the gallbladder. The gallbladder is otherwise normal with no stones or wall thickening. There is no pericholecystic fluid collection. The bile ducts are normal with the common bile duct measuring 2.6 mm in diameter. The pancreas is not visualized due to overlying bowel gas. No free fluid is present. The right kidney measures 11.4 x 6.2 x 5.0 cm. There is normal echogenicity of the right kidney. There is no perinephric fluid collection. No hydronephrosis, mass, or calculus is seen. IMPRESSION: 1. Fatty metamorphosis of the liver. 2. Sludge in the gallbladder. The III no gallstones or evidence of cholecystitis. 4. Pancreas not visualized. 5. Otherwise normal right upper quadrant abdomen ultrasound. RPTAT: QQ Disposition: Discharge Assessment/Plan IUP at 26 weeks and 3 days Right upper quadrant abdominal pain gallbladder sludge No evidence of labor No surgical issue Labs are unremarkable Pain improved with Tylenol 650 p.o. 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
== END 2017-04-18 17:05 | disposition home or self-care (01) ==
LOC: L-D 13:32 → OBT 13:32
PROVIDERS: ATTEND Obstetrics & Gynecology Obstetrics
DX: O26.892 Other specified pregnancy related conditions, second trimester (principal); Z3A.26 26 weeks gestation of pregnancy; R10.11 Right upper quadrant pain; K76.0 Fatty (change of) liver, not elsewhere classified
CPT/HCPCS: 76817; Z7500; Z7610; G0463

== ENCOUNTER 2017-06-12 15:48 | Outpatient (CLI) | END 2017-06-12 21:38 | disposition home or self-care (01) ==

== ENCOUNTER 2017-06-29 13:30 | Inpatient (IN) | END 2017-07-02 20:30 | disposition home or self-care (01) | DRG 775 ==